=== PATIENT | male | born 1985 | race Caucasian/White ===

== ENCOUNTER 2020-02-03 01:34 | Emergency (ER) | payer OTHER, SELFPAY ==
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
[2020-02-03 01:33] VITALS: BP 153/81; PULSE 93; RESP 18; TEMP 36.7; O2SAT 100
[2020-02-03] MEDS: MORPHINE SULFATE 4 MG/ML INJ IV PUSH (02:14)
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
[2020-02-03] MEDS: ONDANSETRON INJ 4 MG/2 ML VIAL IV PUSH (02:15)
[2020-02-03] MEDS: LACTATED RINGERS 1,000 ML 999 ML IV CONT (02:15)
[2020-02-03 02:24] LABS: Basophils Absolute Auto 0.1 K/mm3 (0.0-0.1); Basophils Percent Auto 0.6 % (0.2-1.2); Eosinophils Absolute Auto 0.3 K/mm3 (0-0.3); Eosinophils Percent Auto 2.5 % (0-4.4); Hematocrit 45.6 % (42.0-52.0); Hemoglobin 15.4 g/dL (14.0-18.0); Immature Granulocyte Absolute 0.15 K/mm3 (0.00-0.031); Immature Granulocyte Percent A 1.2 % (0-0.5); Lymphocytes Absolute Auto 2.97 K/mm3 (0.9-3.2); Lymphocytes Percent Auto 23.7 % (18.3-44.2); Mean Corpuscular HGB Conc 33.8 g/dl (32-36); Mean Corpuscular Hemoglobin 30.6 pg (26-34); Mean Corpuscular Volume 90.5 fl (80-100); Mean Platelet Volume 10.1 fl (7.4-10.4); Monocytes Absolute Auto 0.6 K/mm3 (0.1-0.6); Monocytes Percent Auto 5.1 % (2.6-8.5); Neutrophils Absolute Auto 8.4 K/mm3 (1.3-6.7); Neutrophils Percent Auto 66.9 % (45.5-73.1); Platelet Count Result 252 k/mm3 (150-375); Red Blood Count 5.04 M/mm3 (4.6-6.20); Red Cell Distribution Width 12.7 % (11.5-14.5); White Blood Count 12.6 K/mm3 (4.5-10.0)
[2020-02-03 02:30] VITALS: BP 159/88; PULSE 119; RESP 18; O2SAT 100
[2020-02-03 02:42] LABS: Alanine Aminotransferase 46 U/L (4-50); Albumin Level 4.7 g/dL (3.5-5.1); Alkaline Phosphatase 68 U/L (38-126); Anion Gap 11 mmol/L (8-16); Aspartate Amino Transferase 51 U/L (17-59); Bilirubin,Total 0.6 mg/dL (0.2-1.3); Blood Urea Nitrogen 10 mg/dL (9-20); Calcium 9.5 mg/dL (8.4-10.2); Carbon Dioxide 27 mmol/L (22-30); Chloride 102 mmol/L (98-107); Estimated CRCL calculation 140 ml/min; Estimated Glomerular Filt Rate > 60; Glucose 105 mg/dL (75-110); Potassium 4.2 mmol/L (3.4-5.0); Sodium 140 mmol/L (137-145)
[2020-02-03 03:30] VITALS: BP 147/66; PULSE 121; RESP 16; O2SAT 98
[2020-02-03] MEDS: traMADol HCL 50 MG TABLET PO (03:57)
[2020-02-03] MEDS: IBUPROFEN 400 MG TABLET 800 MG PO (03:57)
--- NOTE | 2020-02-03 04:13 | PC.NURSE ---
4 Gerry wrap to right ankle-instructions given while applying Patient fitted with crutches-swing through gait instructions given and patient observed doing it correctly. Girlfriend also at bedside receiving instructions
[2020-02-03 04:20] VITALS: BP 131/82; PULSE 113; RESP 19; O2SAT 99
[2020-02-03 09:21] LABS: Estimated CRCL calculation 126 ml/min; Estimated Glomerular Filt Rate > 60
== END 2020-02-03 04:35 | disposition home or self-care (01) ==
PROVIDERS: Emergency Provider General Practice
DX: S20.212A Contusion of left front wall of thorax, initial encounter (principal); S30.1XXA Contusion of abdominal wall, initial encounter; V44.5XXA Car driver injured in collision with heavy transport vehicle or bus in traffic accident, initial encounter; S93.401A Sprain of unspecified ligament of right ankle, initial encounter
CPT/HCPCS: 36415; 71260; 72125; 73610; 74177; 80053; 85025; 96361; 96374; 96375; 99284; A9270; J2270; J2405; J7120; Q9967